=== PATIENT | female | born 1960 | race Caucasian/White ===

== ENCOUNTER 2018-11-28 12:23 | Observation (INO) | payer MEDICARE ==
[2018-11-28 13:49] LABS: Hemoglobin 14.9 gm/dl (12.0-16.0); Mean Cell Volume 94.9 fl (78-100); Mean Corpuscular Hemoglobin 32.9 pg (26-32); Mean Corpuscular Hgb Concent. 34.7 g/dl (32-36); Mean Platelet Volume 10.5 fl (6-9.5); Platelet Count 114 K/mm3 (150-450); Red Blood Count 4.53 M/mm3 (4.1-5.4); Red Cell Distribution Width 12.1 % (11.5-14.0)
[2018-11-28] MEDS ORDERED: ULTRAM 50 MG PO PRN (13:55)
[2018-11-28] MEDS ORDERED: NORCO 5/325 MG PO PRN (13:55)
[2018-11-28 13:57] LABS: ALBUMIN 4.7 g/dL (3.5-5.0); ALKALINE PHOSPHATASE 75 U/L (38-126); ANION GAP 19.5 MEQ/L (5-15); BLOOD UREA NITROGEN 17 mg/dL (7-17); CHLORIDE 88 mmol/L (98-107); Calcium 9.5 mg/dL (8.4-10.2); Carbon Dioxide 25 mmol/L (22-30); Creatinine 1 0.57 mg/dL (0.52-1.04); Glucose 79 mg/dL (74-106); Potassium 4.7 mmol/L (3.5-5.1); SGOT/AST 63 U/L (14-36); SGPT/ALT 27 U/L (0-35); SODIUM 128 mmol/L (137-145)
--- NOTE | 2018-11-28 14:05 | XRAY ---
Indication: Chest pain and cough. Comparison: October 10, 2012. PA/lateral chest remains hyperinflated and clear again with incidental calcified granulomas. Heart and mediastinal structures within normal limits. Bony thorax intact. Impression: Stable nonacute hyperinflated chest with evidence for old granulomatous disease.
[2018-11-28] MEDS: Calcium 500MG W/Vit D Tablet PO SCH (15:05)
[2018-11-28] MEDS: Valium 5 MG PO SCH (15:05)
[2018-11-28] MEDS ORDERED: TYLENOL 325 MG PO PRN (16:28)
[2018-11-28] MEDS: solu-MEDROL 40 MG IV SCH ×2 (16:29→21:13)
[2018-11-28] MEDS: ROCEPHIN 1 Gm-D5w 50 ml Bag** 1 G/50 ML IVPB IV SCH (16:29)
[2018-11-28] MEDS: Sodium Chloride 0.9% 1000 ML 1,000 ML IV SCH (16:29)
[2018-11-28] MEDS: DUONEB 0.5-3 MG/3 ml Neb IH SCH (19:38)
[2018-11-29] MEDS: DUONEB 0.5-3 MG/3 ml Neb IH SCH ×4 (00:53→17:22)
[2018-11-29] MEDS: ROCEPHIN 1 Gm-D5w 50 ml Bag** 1 G/50 ML IVPB IV SCH (08:55)
[2018-11-29] MEDS: Sodium Chloride 0.9% 1000 ML 1,000 ML IV SCH (08:57)
[2018-11-29] MEDS: Calcium 500MG W/Vit D Tablet PO SCH (08:58)
[2018-11-29] MEDS: Valium 5 MG PO SCH (08:58)
[2018-11-29] MEDS: solu-MEDROL 40 MG IV SCH ×2 (08:58→22:38)
[2018-11-29 09:45] LABS: Hematocrit 39.3 % (35-47); Hemoglobin 13.8 gm/dl (12.0-16.0); Mean Cell Volume 94.5 fl (78-100); Mean Corpuscular Hemoglobin 33.2 pg (26-32); Mean Corpuscular Hgb Concent. 35.1 g/dl (32-36); Platelet Count 101 K/mm3 (150-450); Red Blood Count 4.16 M/mm3 (4.1-5.4); White Blood Count 5.2 K/mm3 (4.0-10.5)
[2018-11-29] MEDS ORDERED: FLUZONE QUAD (36mo-64yo) 2018-2019 SYRINGE IM ONE (10:00)
[2018-11-29] MEDS ORDERED: NON-FORMULARY ITEM (Diazepam [Valium] 10 MG) PO SCH (10:00)
[2018-11-29] MEDS ORDERED: NON-FORMULARY ITEM (Calcium Carbonate/Vitamin D3 [Calcium 1,000 + D3 Caplet] 1 EACH) PO SCH (10:00)
[2018-11-29 10:14] LABS: ANION GAP 15.6 MEQ/L (5-15); BLOOD UREA NITROGEN 13 mg/dL (7-17); CHLORIDE 93 mmol/L (98-107); Calcium 8.7 mg/dL (8.4-10.2); Carbon Dioxide 27 mmol/L (22-30); Creatinine 1 0.53 mg/dL (0.52-1.04); Glucose 149 mg/dL (74-106); Potassium 3.8 mmol/L (3.5-5.1); SODIUM 132 mmol/L (137-145)
--- NOTE | 2018-11-29 15:27 | PCM.NOTE ---
Date and Time: 11/29/18 1524 Subjective Assessment: feeling little better - Review of Systems Constitutional: No Fever, No Chills Eyes: No Symptoms Ears, Nose, & Throat: No Symptoms Respiratory: Cough, Orthopnea, Short Of Breath, Wheezing Cardiac: No Chest Pain, No Edema, No Syncope Abdominal/Gastrointestinal: No Abdominal Pain, No Nausea, No Vomiting, No Diarrhea Genitourinary Symptoms: No Dysuria Musculoskeletal: No Back Pain, No Neck Pain Skin: No Rash Neurological: No Dizziness, No Focal Weakness, No Sensory Changes Psychological: No Symptoms Endocrine: No Symptoms Hematologic/Lymphatic: No Symptoms Immunological/Allergic: No Symptoms Objective Exam General Appearance: no apparent distress, alert Neurologic Exam: alert, oriented x 3, cooperative, normal mood/affect, nml cerebellar function, sensation nml, No motor deficits Skin Exam: normal color, warm, dry Eye Exam: PERRL, EOMI, eyes nml inspection Ears, Nose, Throat Exam: normal ENT inspection, pharynx normal, moist mucous membranes Neck Exam: normal inspection, non-tender, supple, full range of motion Respiratory Exam: normal breath sounds, lungs clear, No respiratory distress Cardiovascular Exam: regular rate/rhythm, normal heart sounds Gastrointestinal/Abdomen Exam: soft, No tenderness, No mass Extremity Exam: normal inspection, normal range of motion Back Exam: normal inspection, normal range of motion, No CVA tenderness, No vertebral tenderness Pelvic Exam: deferred Rectal Exam: deferred OBJECTIVE DATA Vital Signs: Vital Signs - 24 hr Temp Pulse Resp BP Pulse Ox 11/29/18 12:17 97.8 F 77 20 87/54 97 11/29/18 12:11 76 20 11/29/18 12:00 20 11/29/18 08:22 80 20 98 11/29/18 08:00 20 11/29/18 07:41 97.8 F 64 20 98/60 98 11/29/18 04:00 97.9 F 83 18 101/63 96 11/29/18 00:54 84 16 97 11/29/18 00:30 98.7 F 87 16 98/61 97 11/28/18 20:00 99.8 F 103 H 18 110/57 91 L 11/28/18 19:39 101 H 18 89 L 11/28/18 16:00 101.0 F 106 H 18 166/87 90 L Oxygen-Last 24 hours O2 Percentage 2 Liters = 28% O2 Percentage 2 Liters = 28% O2 Percentage 2 Liters = 28% Pain Assessment - Last Documented Pain Intensity 5 Pain Scale Used 0-10 Pain Scale Intake and Output: Intake & Output 11/27/18 11/28/18 11/29/18 11/30/18 11:59 11:59 11:59 11:59 Intake Total 1359 360 Output Total 500 1100 Balance 859 -740 Weight 48.3 kg Lab Results: Lab Results-Last 24 Hours 11/29/18 11/29/18 Range/Units 09:41 09:41 WBC 5.2 (4.0-10.5) K/mm3 RBC 4.16 (4.1-5.4) M/mm3 Hgb 13.8 (12.0-16.0) gm/dl Hct 39.3 (35-47) % MCV 94.5 (78-100) fl MCH 33.2 H (26-32) pg MCHC 35.1 (32-36) g/dl RDW 12.0 (11.5-14.0) % Plt Count 101 L (150-450) K/mm3 MPV 11.0 H (6-9.5) fl Sodium 132 L (137-145) mmol/L Potassium 3.8 (3.5-5.1) mmol/L Chloride 93 L (98-107) mmol/L Carbon Dioxide 27 (22-30) mmol/L Anion Gap 15.6 H (5-15) MEQ/L BUN 13 (7-17) mg/dL Creatinine 0.53 (0.52-1.04) mg/dL Estimated GFR > 60.0 ML/MIN Glucose 149 H (74-106) mg/dL Calcium 8.7 (8.4-10.2) mg/dL Radiology Exams: Radiology Procedures Category Date Time Status CHEST 2 VIEWS (PA AND LAT) Routine Exams 11/28/18 14:00 Completed Assessment/Plan (1) Bronchitis with chronic airway obstruction Current Visit: Yes Status: Acute Assessment & Plan: Last Vital Signs Temp 97.8 F 11/29/18 12:17 Pulse 77 11/29/18 12:17 Resp 20 11/29/18 12:17 BP 87/54 11/29/18 12:17 Pulse Ox 97 11/29/18 12:17 Allergies codeine [Codeine] Allergy (Verified 10/23/12 06:57) acetaminophen [From Tylenol] Adverse Reaction (Mild, Verified 10/19/12 13:30) upset stomach Active Medications Acetaminophen (Tylenol 325 Mg) 650 mg PO Q6H PRN PRN PRN Reason: PAIN AND/OR FEVER Stop: 12/28/18 16:27 Last Admin: 11/28/18 16:36 Dose: 650 mg Hydrocodone Bitart/Acetaminophen ([place] 5/325 Mg) 1 tab PO Q4H PRN PRN PRN Reason: PAIN Stop: 12/03/18 13:54 Albuterol/Ipratropium (Duoneb 0.5-3 Mg/3 Ml Neb) 3 ml IH Q6HRT MARGE Stop: 12/28/18 18:59 Last Admin: 11/29/18 12:10 Dose: 3 ml Calcium Carbonate (Calcium 500mg W/Vit D Tablet) 2 tab PO DAILY MARGE Stop: 12/28/18 13:59 Last Admin: 11/29/18 08:58 Dose: 2 tab Diazepam (Valium 5 Mg) 10 mg PO DAILY MARGE Stop: 12/28/18 13:59 Last Admin: 11/29/18 08:58 Dose: 10 mg Ceftriaxone Sodium/Dextrose (Rocephin 1 Gm-D5w 50 Ml Bag) 1 g in 50 mls @ 100 mls/hr IV Q24H10 MARGE Stop: 12/28/18 13:59 Last Admin: 11/29/18 08:55 Dose: 100 mls/hr Sodium Chloride (Sodium Chloride 0.9% 1000 Ml) 1,000 mls @ 100 mls/hr IV .Q10H MARGE Stop: 12/28/18 13:29 Last Admin: 11/29/18 08:57 Dose: 100 mls/hr Methylprednisolone Sodium Succinate (Solu-Medrol 40 Mg) 40 mg IV BID MARGE Stop: 12/28/18 13:31 Last Admin: 11/29/18 08:58 Dose: 40 mg Tramadol HCl (Ultram 50 Mg) 50 mg PO Q6H/PRN PRN PRN Reason: PAIN Stop: 12/28/18 13:54 Intake & Output 11/29/18 11/30/18 11:59 11:59 Intake Total 1359 360 Output Total 500 1100 Balance 859 -740 Weight 48.3 kg Orders 11/28/18 16:28 Acetaminophen 325 mg [Tylenol 325 mg] 650 mg PO Q6H PRN PRN 11/28/18 19:00 Albuterol/Ipratropium 3ml Neb* [DUONEB 0.5-3 MG/3 ml Neb] 3 ml IH Q6HRT 11/28/18 19:50 Oxygen Nasal Cannula 2 lpm 11/28/18 19:52 Pulse Oximetry .spot check 11/28/18 19:53 Respiratory Therapy Assessment DAILY 11/29/18 08:25 Peak Expiratory Flow Rate ONCE Lab Tests 11/29/18 11/29/18 09:41 09:41 WBC 5.2 RBC 4.16 Hgb 13.8 Hct 39.3 MCV 94.5 MCH 33.2 H MCHC 35.1 RDW 12.0 Plt Count 101 L MPV 11.0 H Sodium 132 L Potassium 3.8 Chloride 93 L Carbon Dioxide 27 Anion Gap 15.6 H BUN 13 Creatinine 0.53 Estimated GFR > 60.0 Glucose 149 H Calcium 8.7 Code(s): J44.9 - CHRONIC OBSTRUCTIVE PULMONARY DISEASE, UNSPECIFIED
[2018-11-30] MEDS: DUONEB 0.5-3 MG/3 ml Neb IH SCH ×3 (01:15→12:36)
[2018-11-30] MEDS: Sodium Chloride 0.9% 1000 ML 1,000 ML IV SCH (06:38)
[2018-11-30] MEDS: ROCEPHIN 1 Gm-D5w 50 ml Bag** 1 G/50 ML IVPB IV SCH (10:09)
[2018-11-30] MEDS: solu-MEDROL 40 MG IV SCH (10:11)
[2018-11-30] MEDS: Calcium 500MG W/Vit D Tablet PO SCH (10:15)
[2018-11-30] MEDS: Valium 5 MG PO SCH (10:15)
[2018-11-30 12:19] VITALS: BP 90/52
--- NOTE | 2018-11-30 12:31 | PCM.DS ---
Discharge Summary Date of Admission: 11/28/18 13:06 Admitting Physician: MIGUEL BOCANEGRA Primary Care Provider: MIGUEL BOCANEGRA Allergies Allergies codeine [Codeine] Allergy (Verified 10/23/12 06:57) acetaminophen [From Tylenol] Adverse Reaction (Mild, Verified 10/19/12 13:30) upset stomach Hospital Summary - Hospital Course Hospital Course: Chief Complaint Diagnosis ACUTE BRONCHITIS, COPD EXACERBATION Allergies Allergy/AdvReac Type Severity Reaction Status Date / Time codeine [Codeine] Allergy Verified 10/23/12 06:57 acetaminophen [From Tylenol] AdvReac Mild upset Verified 10/19/12 13:30 stomach Vital Signs (Last 24 hours) Temp Pulse Resp BP BP Pulse Ox 11/30/18 12:00 97.8 F 84 18 90/52 98 11/30/18 09:24 78 17 98 11/30/18 08:00 98.4 F 79 16 83/51 99 11/30/18 04:20 97.6 F 76 16 108/59 98 11/30/18 01:15 86 16 96 11/30/18 00:00 97.9 F 89 16 95/54 98 11/29/18 20:15 97.9 F 86 20 88/54 96 11/29/18 17:23 81 18 97 11/29/18 16:23 97.9 F 82 18 93/51 99 11/29/18 16:00 18 Home Medications Medication Instructions Recorded Confirmed Last Taken Type Calcium Carbonate/Vitamin D3 1 each PO DAILY 11/28/18 11/28/18 11/25/18 History [Calcium 1,000 + D3 Caplet] Hydrocodone/APAP 5/325 [[place] 1 tab PO Q4H PRN PRN 11/28/18 11/28/18 History 5/325 mg] Current Medications Generic Name Dose Route Start Last Admin Trade Name Freq PRN Reason Stop Dose Admin Acetaminophen 650 mg 11/28/18 16:28 11/28/18 16:36 Tylenol 325 Mg PO 12/28/18 16:27 650 mg Q6H PRN PRN Administration PAIN AND/OR FEVER Hydrocodone Bitart/Acetaminophen 1 tab 11/28/18 13:55 [place] 5/325 Mg PO 12/03/18 13:54 Q4H PRN PRN PAIN Albuterol/Ipratropium 3 ml 11/28/18 19:00 11/30/18 06:43 Duoneb 0.5-3 Mg/3 Ml Neb IH 12/28/18 18:59 3 ml Q6HRT MARGE Administration Calcium Carbonate 2 tab 11/28/18 14:00 11/30/18 10:15 Calcium 500mg W/Vit D Tablet PO 12/28/18 13:59 2 tab DAILY MARGE Administration Diazepam 10 mg 11/28/18 14:00 11/30/18 10:15 Valium 5 Mg PO 12/28/18 13:59 10 mg DAILY MARGE Administration Ceftriaxone Sodium/Dextrose 1 g in 50 mls @ 100 mls/hr 11/28/18 14:00 10:09 Rocephin 1 Gm-D5w 50 Ml Bag IV 12/28/18 13:59 100 mls/hr Q24H10 MARGE Administration Sodium Chloride 1,000 mls @ 100 mls/hr 11/28/18 13:30 11/30/18 06:38 Sodium Chloride 0.9% 1000 Ml IV 12/28/18 13:29 100 mls/hr .Q10H MARGE Administration Methylprednisolone Sodium Succinate 40 mg 11/28/18 13:32 11/30/18 10:11 Solu-Medrol 40 Mg IV 12/28/18 13:31 40 mg BID MARGE Administration Tramadol HCl 50 mg 11/28/18 13:55 Ultram 50 Mg PO 12/28/18 13:54 Q6H/PRN PRN PAIN Discontinued Medications Generic Name Dose Route Start Last Admin Trade Name Freq PRN Reason Stop Dose Admin Influenza Virus Vaccine 60 mcg 11/29/18 10:00 11/29/18 08:58 Fluzone Quad (36mo-64yo) [id number] Syringe IM 11/29/18 10:01 60 mcg .ONCE ONE Administration Intake & Output (Last 24 hours) 11/28/18 11/29/18 11/30/18 12/01/18 11:59 11:59 11:59 11:59 Intake Total 1359 2724 Output Total 500 3950 Balance 859 -1226 Weight 48.3 kg Orders (Last 24 hours) Category Date Time Status Ambulate Patient ROUTINE Care 11/30/18 08:59 Active - Vitals & Intake/Output Vital Signs: Vital Signs Temperature 97.8 F 11/30/18 12:00 Pulse Rate 84 11/30/18 12:00 Respiratory Rate 18 11/30/18 12:00 Blood Pressure 90/52 11/30/18 12:00 O2 Sat by Pulse Oximetry 98 11/30/18 12:00 Oxygen-Last Documented O2 Percentage 2 Liters = 28% Intake & Output: Intake & Output 11/28/18 11/29/18 11/30/18 12/01/18 11:59 11:59 11:59 11:59 Intake Total 1359 2724 Output Total 500 3950 Balance 859 -1226 Weight 48.3 kg - Lab Result Diagrams: 11/29/18 09:41 11/29/18 09:41 - Radiology Exams Ordered Rad Exams-Entire Visit: Radiology Procedures Category Date Time Status CHEST 2 VIEWS (PA AND LAT) Routine Exams 11/28/18 14:00 Completed - Procedures and Test Procedures and Tests throughout Hospitalization: Therapy Orders & Screens 11/28/18 13:26 Respiratory Therapy Consult ROUTINE Comment: Reason For Exam: bronchitis, copd 11/28/18 13:41 Smoking Cessation Education Comment: Diagnosis: ACUTE BRONCHITIS, COPD EXACERBATION Smoking Status: Current every day smoker How long have you smoked: 40 YEARS Have you smoked in the past 12 months: Yes Approximately how many cigarettes per day: 18 Do you dip or chew tobacco: No 11/28/18 19:50 Oxygen Nasal Cannula 2 lpm Comment: Diagnosis: ACUTE BRONCHITIS, COPD EXACERBATION 11/28/18 19:53 Respiratory Therapy Assessment DAILY Comment: Diagnosis: ACUTE BRONCHITIS, COPD EXACERBATION 11/29/18 08:25 Peak Expiratory Flow Rate ONCE Comment: Reason For Exam: Diagnosis: ACUTE BRONCHITIS, COPD EXACERBATION Discharge Exam General Appearance: no apparent distress, alert Neurologic Exam: alert, oriented x 3, cooperative, normal mood/affect, nml cerebellar function, sensation nml, No motor deficits Skin Exam: normal color, warm, dry Eye Exam: PERRL, EOMI, eyes nml inspection Ears, Nose, Throat Exam: normal ENT inspection, pharynx normal, moist mucous membranes Neck Exam: normal inspection, non-tender, supple, full range of motion Respiratory Exam: normal breath sounds, lungs clear, No respiratory distress Cardiovascular Exam: regular rate/rhythm, normal heart sounds Gastrointestinal/Abdomen Exam: soft, No tenderness, No mass Extremity Exam: normal inspection, normal range of motion Back Exam: normal inspection, normal range of motion, No CVA tenderness, No vertebral tenderness Pelvic Exam: deferred Rectal Exam: deferred Final Diagnosis/Problem List - Final Discharge Diagnosis/Problem (1) Bronchitis with chronic airway obstruction Current Visit: Yes Status: Acute Assessment & Plan: improved, Chief Complaint Diagnosis ACUTE BRONCHITIS, COPD EXACERBATION Allergies Allergy/AdvReac Type Severity Reaction Status Date / Time codeine [Codeine] Allergy Verified 10/23/12 06:57 acetaminophen [From Tylenol] AdvReac Mild upset Verified 10/19/12 13:30 stomach Vital Signs (Last 24 hours) Temp Pulse Resp BP BP Pulse Ox 11/30/18 12:00 97.8 F 84 18 90/52 98 11/30/18 09:24 78 17 98 11/30/18 08:00 98.4 F 79 16 83/51 99 11/30/18 04:20 97.6 F 76 16 108/59 98 11/30/18 01:15 86 16 96 11/30/18 00:00 97.9 F 89 16 95/54 98 11/29/18 20:15 97.9 F 86 20 88/54 96 11/29/18 17:23 81 18 97 11/29/18 16:23 97.9 F 82 18 93/51 99 11/29/18 16:00 18 Home Medications Medication Instructions Recorded Confirmed Last Taken Type Calcium Carbonate/Vitamin D3 1 each PO DAILY 11/28/18 11/28/18 11/25/18 History [Calcium 1,000 + D3 Caplet] Hydrocodone/APAP 5/325 [[place] 1 tab PO Q4H PRN PRN 11/28/18 11/28/18 History 5/325 mg] Current Medications Generic Name Dose Route Start Last Admin Trade Name Freq PRN Reason Stop Dose Admin Acetaminophen 650 mg 11/28/18 16:28 11/28/18 16:36 Tylenol 325 Mg PO 12/28/18 16:27 650 mg Q6H PRN PRN Administration PAIN AND/OR FEVER Hydrocodone Bitart/Acetaminophen 1 tab 11/28/18 13:55 [place] 5/325 Mg PO 12/03/18 13:54 Q4H PRN PRN PAIN Albuterol/Ipratropium 3 ml 11/28/18 19:00 11/30/18 06:43 Duoneb 0.5-3 Mg/3 Ml Neb IH 12/28/18 18:59 3 ml Q6HRT MARGE Administration Calcium Carbonate 2 tab 11/28/18 14:00 11/30/18 10:15 Calcium 500mg W/Vit D Tablet PO 12/28/18 13:59 2 tab DAILY MARGE Administration Diazepam 10 mg 11/28/18 14:00 11/30/18 10:15 Valium 5 Mg PO 12/28/18 13:59 10 mg DAILY MARGE Administration Ceftriaxone Sodium/Dextrose 1 g in 50 mls @ 100 mls/hr 11/28/18 14:00 10:09 Rocephin 1 Gm-D5w 50 Ml Bag IV 12/28/18 13:59 100 mls/hr Q24H10 MARGE Administration Sodium Chloride 1,000 mls @ 100 mls/hr 11/28/18 13:30 11/30/18 06:38 Sodium Chloride 0.9% 1000 Ml IV 12/28/18 13:29 100 mls/hr .Q10H MARGE Administration Methylprednisolone Sodium Succinate 40 mg 11/28/18 13:32 11/30/18 10:11 Solu-Medrol 40 Mg IV 12/28/18 13:31 40 mg BID MARGE Administration Tramadol HCl 50 mg 11/28/18 13:55 Ultram 50 Mg PO 12/28/18 13:54 Q6H/PRN PRN PAIN Discontinued Medications Generic Name Dose Route Start Last Admin Trade Name Freq PRN Reason Stop Dose Admin Influenza Virus Vaccine 60 mcg 11/29/18 10:00 11/29/18 08:58 Fluzone Quad (36mo-64yo) [id number] Syringe IM 11/29/18 10:01 60 mcg .ONCE ONE Administration Intake & Output (Last 24 hours) 11/28/18 11/29/18 11/30/18 12/01/18 11:59 11:59 11:59 11:59 Intake Total 1359 2724 Output Total 500 3950 Balance 859 -1226 Weight 48.3 kg Orders (Last 24 hours) Category Date Time Status Ambulate Patient ROUTINE Care 11/30/18 08:59 Active - Discharge Discharge Date: 11/30/18 Disposition: Home, Self-Care Condition: Stable Prescriptions: New Cephalexin Mh 500 mg [Keflex 500 mg] 500 mg PO QID #30 capsule Methylprednisolone Packet [Medrol Dosepack] 4 mg PO UD #30 packet Continue Diazepam [Valium] 10 mg PO DAILY Calcium Carbonate/Vitamin D3 [Calcium 1,000 + D3 Caplet] 1 each PO DAILY Tramadol HCl 50 mg [Ultram 50 mg] 50 mg PO Q6H PRN #30 PRN Reason: Pain Discontinued Hydrocodone/APAP 5/325 [[place] 5/325 mg] 1 tab PO Q4H PRN PRN PRN Reason: Pain Follow up with: MIGUEL BOCANEGRA MD [Primary Care Provider] - 12/08/18 2:30 pm (at [facility])
[2018-11-30 13:04] VITALS: PULSE 86
[2018-11-30 15:00] VITALS: O2SAT 97
== END 2018-11-30 15:50 | disposition home or self-care (01) ==
LOC: MED SURG 13:06
PROVIDERS: ADMIT General Practice; ATTEND General Practice
DX: J44.1 Chronic obstructive pulmonary disease with (acute) exacerbation (principal); J20.9 Acute bronchitis, unspecified
CPT/HCPCS: 36415; 71046; 80048; 80053; 85027; 94150; 94640; 94760; G0008; G0378; 90686; J0696; J2920; A9270-GY

== ENCOUNTER 2019-11-27 06:04 | Day surgery (SDC) | payer MEDICARE ==
[~2019-11-27 06:04] MED LIST: Lactated Ringers 1,000 ML IV SCH
[2019-11-27] MEDS ORDERED: Lactated Ringers 1,000 ML IV ONE (06:33)
[2019-11-27] MEDS ORDERED: DIPRIVAN 200 MG/20 ML IV ONE (08:08)
[2019-11-27 08:35] VITALS: PULSE 85; O2SAT 98
--- NOTE | 2019-11-27 08:42 | OP ---
SURGERY DATE/TIME: 11/27/2019 0757 PREOPERATIVE DIAGNOSIS: Epigastric pain. POSTOPERATIVE DIAGNOSIS: Moderate duodenitis, mild gastritis. PROCEDURE: Esophagogastroduodenoscopy with cold forceps biopsy. SURGEON: Dr. Madrid. ANESTHESIA: Medications were given by the anesthesia department. BRIEF HISTORY: The patient is a 59 year old white female presenting now for endoscopic evaluation. The patient reported she has a history of Crohn's colitis and has not been taking medication for the last several years. She used to take Remicade when Dr. Hayes was in the area but he has moved away many years ago. The patient reports she takes no [id number] medication other than antacids which do help temporarily. The patient was felt the need to have endoscopic evaluation. She was apprised of the risks of the procedure including the risk of perforation, phlebitis, untoward reaction to medication, bleeding and missed lesions. The patient verbalized her understanding and desired to have the procedure performed. DESCRIPTION OF PROCEDURE: The patient was given the medications by the anesthesia department. She had continuous pulse oximetry, ECG monitoring, intermittent blood pressure monitoring and tidal CO2 monitoring during the examination. She was placed in the left lateral decubitus position. A bite block was placed and the flexible Olympus gastroscope was used to intubate the oropharynx. A view of the larynx was obtained and was normal. The scope was easily introduced in the esophagus which appeared to be normal throughout its length. The stomach was entered where normal gastric rugal folds were seen and these distended nicely with insufflation of air. The scope was passed along the greater curvature of the stomach to the antrum. The pylorus was encountered and intubated. The duodenum was inspected and found to have some erythema but no erosions or ulcerations. The scope is then withdrawn towards the stomach. A retroflex view was obtained of the lesser curvature, fundus and cardia regions of the stomach and these appeared to be essentially normal. The scope was then redirected towards the gastric antrum where biopsies were obtained to rule out the presence of Helicobacter pylori-type organisms. The scope was then removed from the patient who tolerated the procedure well and was sent back to outpatient recovery in good condition.
[2019-11-27 09:00] VITALS: BP 134/82
== END 2019-11-27 09:00 | disposition home or self-care (01) ==
LOC: SDC 06:04
PROVIDERS: ATTEND Family Medicine
DX: K29.80 Duodenitis without bleeding (principal); K29.70 Gastritis, unspecified, without bleeding; K21.9 Gastro-esophageal reflux disease without esophagitis; Z87.19 Personal history of other diseases of the digestive system
CPT/HCPCS: 88305; J2704

== ENCOUNTER 2021-08-07 11:16 | Emergency (ER) | payer MEDICARE ==
[2021-08-07] MEDS ORDERED: MORPHINE SULFATE 4 MG INJ IV ONE (11:52)
[2021-08-07] MEDS ORDERED: Sodium Chloride 0.9% 1000 ML 1,000 ML IV STA (11:52)
[2021-08-07] MEDS ORDERED: PROTONIX 40 MG IV IV ONE ×2 (11:52→11:56)
[2021-08-07] MEDS ORDERED: Sodium Chloride 0.9% 1000 ML 1,000 ML ONE (11:57)
[2021-08-07] MEDS ORDERED: MORPHINE SULFATE 4 MG INJ ONE (11:57)
--- NOTE | 2021-08-07 12:11 | ERPHSYRPT ---
- History of Present Illness Time Seen by Provider: 08/07/21 11:33 Historian: patient Exam Limitations: no limitations Patient Subjective Stated Complaint: Pt began having pain in her left mid back that radiates to the bottom of her back, pain began 4 days ago Triage Nursing Assessment: Pt brought to the ER by her , hypertensive, rates pain as 8/, pt is currently being treated for shingles by Brittany Owens just this past week, pt states that she was in end stage kidney failure approx 20 years ago and now her kidneys have no problems at all, denies pain to the back with palpatation, constant stabbing pain, denies pain with urination, denies injury Physician History: 60 years old female presented in the ER with 4 days history of gradually increasing left flank pain with radiation to the low back but denies any midline back pain and some radiation to anterior abdomen, aggravated with movements palpation and no significant relieving factors. Denies any associated urinary symptoms. No fever or chills reported. Does have nausea but no vomiting. Timing/Duration: day(s) (4), constant, gradual onset, worse Activities at Onset: rest Quality: sharpness Abdominal Pain Onset Location: flank Pain Radiation: back Severity of Pain-Max: moderate Severity of Pain-Current: moderate Modifying Factors: Improves With: rest. Worsens With: movement, palpation Associated Symptoms: nausea Previous symptoms: no prior history Allergies/Adverse Reactions: codeine [Codeine] Allergy (Intermediate, Verified 08/07/21 11:33) Hives acetaminophen [From Tylenol] Adverse Reaction (Mild, Verified 08/07/21 11:33) upset stomach Hx Tetanus, Diphtheria Vaccination/Date Given: No Hx Influenza Vaccination/Date Given: No Hx Pneumococcal Vaccination/Date Given: No Travel Risk - International Travel Have you traveled outside of the country in past 3 weeks: No - Coronavirus Screening Are you exhibiting any of the following symptoms?: No Close contact with a COVID-19 positive Pt in past 14-21 Days: No - Vaccine Status Have you recieved a Covid-19 vaccination: Yes Tube Washer: Moderna - Vaccination Dates Date of 2cond Vaccination (if applicable): 05/2021 - Review of Systems Constitutional: No Symptoms Eyes: No Symptoms Ears, Nose, & Throat: No Symptoms Respiratory: No Symptoms Cardiac: No Symptoms Abdominal/Gastrointestinal: Abdominal Pain, Nausea Genitourinary Symptoms: No Symptoms Musculoskeletal: Back Pain Skin: No Symptoms Neurological: No Symptoms Psychological: No Symptoms Endocrine: No Symptoms Hematologic/Lymphatic: No Symptoms Immunological/Allergic: No Symptoms - Past Medical History Pertinent Past Medical History: Yes Neurological History: TIA ENT History: No Pertinent History Cardiac History: Arrhythmia, High Cholesterol, Other Respiratory History: Bronchitis, COPD, Pneumonia, Sleep Apnea Endocrine Medical History: No Pertinent History Musculoskeletal History: Osteoporosis GI Medical History: Crohns Disease, Ulcer History: Dialysis Psycho-Social History: No Pertinent History Female Reproductive Disorders: Endometriosis Other Medical History: SVT,HEART RACES AT TIMES, HEART MURMUR,MITRAL VALVE PROLAPSE,BLOOD CLOT IN CAROTID, KIDNEY FAILURE REQUIRING SHORT TERM DIALYSIS,CHRONES DISEASE, - Past Surgical History Past Surgical History: Yes Neuro Surgical History: No Pertinent History Cardiac: Cardiac Catheterization, Other Respiratory: No Pertinent History Gastrointestinal: No Pertinent History Genitourinary: No Pertinent History Musculoskeletal: Orthopedic Surgery Female Surgical History: Hysterectomy Other Surgical History: Surgery on right hand X 2, LEFT CAROTID SURGERY-90% BLOCKED,PT HAD TIA - Social History Smoking Status: Current every day smoker How long have you smoked: 40 YEARS Exposure to second hand smoke: Yes Drug Use: none Patient Lives Alone: No - Female History Hx Now: No - Nursing Vital Signs Nursing Vital Signs: Initial Vital Signs Temperature 98.2 F 08/07/21 11:22 Pulse Rate 101 H 08/07/21 11:22 Blood Pressure 148/87 08/07/21 11:22 O2 Sat by Pulse Oximetry 100 08/07/21 11:22 Pain Scale Pain Intensity [Left Lower 8 Medial Back] Pain Intensity 5 - Physical Exam General Appearance: no apparent distress, alert Eye Exam: PERRL/EOMI, eyes nml inspection Ears, Nose, Throat Exam: normal ENT inspection, TMs normal Neck Exam: normal inspection, non-tender, supple, full range of motion Respiratory Exam: normal breath sounds, lungs clear Cardiovascular Exam: regular rate/rhythm, normal heart sounds Gastrointestinal/Abdomen Exam: soft, normal bowel sounds, tenderness (Left flank) Back Exam: normal inspection, normal range of motion, CVA tenderness (Left ), No vertebral tenderness Extremity Exam: normal inspection, normal range of motion, pelvis stable Neurologic Exam: alert, oriented x 3, cooperative Skin Exam: normal color SpO2 Interpretation: normal SpO2: 100 O2 Delivery: Room Air Ordered Tests: Active Orders 24 hr Category Date Time Status IV Insertion STAT Care 08/07/21 11:52 Active NPO (ED) STAT Care 08/07/21 11:52 Active ABDOMEN AND PELVIS W/0 CONTRAS [CT] Stat Exams 08/07/21 11:52 Completed CBC W DIFF Stat Lab 08/07/21 12:55 Completed CMP Stat Lab 08/07/21 12:55 Completed LIPASE Stat Lab 08/07/21 12:55 Completed UA W/RFX UR CULTURE Stat Lab 08/07/21 12:55 Completed Medication Summary Discontinued Medications Generic Name Dose Route Start Last Admin Trade Name Freq PRN Reason Stop Dose Admin Sodium Chloride 1,000 mls @ 999 mls/hr 08/07/21 11:52 08/07/21 13:09 Sodium Chloride 0.9% 1000 Ml IV 08/07/21 12:52 Infused .Q1H1M STA Infusion Sodium Chloride Confirm 08/07/21 11:57 Sodium Chloride 0.9% 1000 Ml Administered 08/07/21 11:58 Dose 1,000 mls @ ud .ROUTE .STK-MED ONE Morphine Sulfate 4 mg 08/07/21 11:52 08/07/21 12:04 Morphine Sulfate 4 Mg Inj IV 08/07/21 11:53 4 mg STAT ONE Administration Morphine Sulfate Confirm 08/07/21 11:57 Morphine Sulfate 4 Mg Inj Administered 08/07/21 11:58 Dose 4 mg .ROUTE .STK-MED ONE Pantoprazole Sodium 40 mg 08/07/21 11:52 08/07/21 12:05 Protonix 40 Mg Iv IV 08/07/21 11:53 40 mg STAT ONE Administration Pantoprazole Sodium Confirm 08/07/21 11:56 Protonix 40 Mg Iv Administered 08/07/21 11:57 Dose 40 mg IV .STK-MED ONE Lab/Rad Data: Laboratory Result Diagrams 08/07/21 12:55 08/07/21 12:55 Laboratory Results 08/07/21 08/07/21 08/07/21 Range/Units 12:55 12:55 12:55 WBC 9.5 (4.0-10.5) K/mm3 RBC 4.33 (4.1-5.4) M/mm3 Hgb 14.2 (12.0-16.0) gm/dl Hct 42.6 (35-47) % MCV 98.4 (78-100) fl MCH 32.8 H (26-32) pg MCHC 33.3 (32-36) g/dl RDW 13.2 (11.5-14.0) % Plt Count 230 (150-450) K/mm3 MPV 9.6 (7.5-11.0) fl Gran % 71.0 H (36.0-66.0) % Eos # (Auto) 0.05 (0-0.5) Absolute Lymphs (auto) 2.21 (1.0-4.6) Absolute Monos (auto) 0.47 (0.0-1.3) Lymphocytes % 23.3 L (24.0-44.0) % Monocytes % 5.0 (0.0-12.0) % Eosinophils % 0.5 (0.00-5.0) % Basophils % 0.2 (0.0-0.4) % Absolute Granulocytes 6.73 (1.4-6.9) Basophils # 0.02 (0-0.4) Sodium 137 (137-145) mmol/L Potassium 4.1 (3.5-5.1) mmol/L Chloride 104 (98-107) mmol/L Carbon Dioxide 25 (22-30) mmol/L Anion Gap 12.3 (5-15) MEQ/L BUN 14 (7-17) mg/dL Creatinine 0.64 (0.52-1.04) mg/dL Estimated GFR > 60.0 ML/MIN Glucose 87 (74-106) mg/dL Calcium 9.4 (8.4-10.2) mg/dL Total Bilirubin 0.60 (0.2-1.3) mg/dL AST 24 (14-36) U/L ALT 13 (0-35) U/L Alkaline Phosphatase 66 (38-126) U/L Serum Total Protein 7.5 (6.3-8.2) g/dL Albumin 4.5 (3.5-5.0) g/dL Lipase 141 (23-300) U/L Urine Color STRAW (YELLOW) Urine Appearance CLEAR (CLEAR) Urine pH 7.0 (5-6) Ur Specific Clyde 1.002 (1.005-1.025) Urine Protein NEGATIVE (Negative) Urine Ketones NEGATIVE (NEGATIVE) Urine Blood NEGATIVE (0-5) Markus/ul Urine Nitrite NEGATIVE (NEGATIVE) Urine Bilirubin NEGATIVE (NEGATIVE) Urine Urobilinogen NEGATIVE (0-1) mg/dL Ur Leukocyte Esterase NEGATIVE (NEGATIVE) Urine WBC (Auto) NONE (0-5) /HPF Urine RBC (Auto) NONE (0-2) /HPF U Epithel Cells (Auto) NONE (FEW) /HPF Urine Culture Reflexed NO (NO) Urine Glucose NEGATIVE (NEGATIVE) mg/dL - Progress Progress: improved Progress Note: 08/07/21 13:58 She is given fluids and occasions, on reevaluation feeling much better. No peritoneal signs on repeated eval. Has normal white count, grossly unremarkable chemistries, no UTI. CT abdomen pelvis without contrast showed significant stool load with questionable impaction but patient states she goes every day. I believe she has some element of constipation. Recommended stool softener and enema to take as needed. Discussed signs symptoms of worsening needing return to ER which she seems understanding. Do not think she needs any other work-up and is stable for discharge. Counseled pt/family regarding: lab results, diagnosis, need for follow-up, rad results - Departure Departure Disposition: Home Clinical Impression: Left flank pain Constipation Qualifiers: Constipation type: unspecified constipation type Qualified Code(s): K59.00 - Constipation, unspecified Condition: Stable Critical Care Time: No Referrals: MIGUEL BOCANEGRA MD [Primary Care Provider] - Follow Up with PCP/3 days Instructions: Constipation, Adult (DC), Fecal Impaction Additional Instructions: Take Tylenol as needed. Take daily MiraLAX and stool softeners. Increase fiber in diet. Take Fleet enema as needed. Follow-up with primary care for reevaluation. Return to ER for worsening. Prescriptions: Docusate Sodium 100 mg [Colace 100 MG] 100 mg PO BID #60 cap Polyethylene Glycol 3350 17 gm [Miralax Powder 17GM PACKET] 17 gm PO DAILY #30 packet
--- NOTE | 2021-08-07 12:37 | XRAY ---
Indication: Left flank pain 4 days. Multiple contiguous images obtained through the abdomen and pelvis without contrast. Comparison: None Lung bases are clear. Heart is not enlarged. Noncontrasted stomach and bowel loops appear nonobstructed. Normal appendix. There is mild/moderate diffuse scattered colonic fecal debris throughout with mild rectal impaction. Hysterectomy reported. No free fluid/air. Tiny hepatic/splenic calcified granulomas. Remaining liver, gallbladder, pancreas, spleen, adrenal glands, kidneys, ureters, and bladder are unremarkable for noncontrast exam. Mild scattered aortoiliac calcifications without AAA. Osseous structures intact with minimal degenerative changes throughout the lumbar spine. Impression: 1. Diffuse fecal stasis with mild rectal impaction. 2. Incidental old granulomatous disease. 3. Remaining CT abdomen/pelvis without contrast exam is negative.
[2021-08-07 13:04] LABS: Absolute Neutrophil Ct (ANC) 6.73 (1.4-6.9); BASOPHIL % 0.2 % (0.0-0.4); Basophil (Absolute #) 0.02 (0-0.4); Eosinophil % 0.5 % (0.00-5.0); Eosinophil (Absolute #) 0.05 (0-0.5); Hematocrit 42.6 % (35-47); Hemoglobin 14.2 gm/dl (12.0-16.0); Lymphocyte (Absolute #) 2.21 (1.0-4.6); Lymphocytes % 23.3 % (24.0-44.0); Mean Cell Volume 98.4 fl (78-100); Mean Corpuscular Hemoglobin 32.8 pg (26-32); Mean Corpuscular Hgb Concent. 33.3 g/dl (32-36); Mean Platelet Volume 9.6 fl (7.5-11.0); Monocyte (Absolute #) 0.47 (0.0-1.3); Platelet Count 230 K/mm3 (150-450); Red Blood Count 4.33 M/mm3 (4.1-5.4); Red Cell Distribution Width 13.2 % (11.5-14.0); White Blood Count 9.5 K/mm3 (4.0-10.5)
[2021-08-07 13:19] LABS: ALBUMIN 4.5 g/dL (3.5-5.0); ALKALINE PHOSPHATASE 66 U/L (38-126); ANION GAP 12.3 MEQ/L (5-15); BLOOD UREA NITROGEN 14 mg/dL (7-17); CHLORIDE 104 mmol/L (98-107); Calcium 9.4 mg/dL (8.4-10.2); Carbon Dioxide 25 mmol/L (22-30); Creatinine 1 0.64 mg/dL (0.52-1.04); EST GLOMERULAR FILTRATION RATE > 60.0 ML/MIN; Glucose 87 mg/dL (74-106); LIPASE 141 U/L (23-300); Potassium 4.1 mmol/L (3.5-5.1); SGOT/AST 24 U/L (14-36); SGPT/ALT 13 U/L (0-35); SODIUM 137 mmol/L (137-145); Total Protein 7.5 g/dL (6.3-8.2)
[2021-08-07 13:35] VITALS: PULSE 80
[2021-08-07 13:40] LABS: Appearance CLEAR (CLEAR); Bilirubin NEGATIVE (NEGATIVE); Blood NEGATIVE Ery/ul (0-5); Glucose NEGATIVE (NEGATIVE); Ketones NEGATIVE (NEGATIVE); Leukocyte Esterase NEGATIVE (NEGATIVE); Nitrite NEGATIVE (NEGATIVE); Protein,Urine Dip NEGATIVE (Negative); Specific Gravity 1.002 (1.005-1.025); Urobilinogen NEGATIVE mg/dL (0-1)
[2021-08-07 14:08] VITALS: BP 109/71; O2SAT 98
== END 2021-08-07 14:12 | disposition home or self-care (01) ==
LOC: ED 11:16
DX: R10.9 Unspecified abdominal pain (principal); K59.00 Constipation, unspecified
CPT/HCPCS: 36000; 36415; 74176; 80053; 81001; 83690; 85025; 96360; 96374; 96375; 99284; J2270

== ENCOUNTER 2021-10-26 17:50 | Emergency (ER) | payer MEDICARE ==
--- NOTE | 2021-10-26 18:36 | ERPHSYRPT ---
- History of Present Illness Historian: patient Exam Limitations: no limitations Patient Subjective Stated Complaint: Pt states "I have crohn's and last night my back started to hurt and my belly and I am passing pure bright red blood now. It was loose diarrhea last night but blood now." Triage Nursing Assessment: Pt presented alert and oriented X 3, skin pwd Pt ambulates with an upright steady gait, able to speak in clear full sentences pt in no apparent respiratory distres.s Physician History: 61 yo wf w h/o Crohn's dz presents w 1 day h/o N/V/Diarrhea/heamtochezia. Pt has R/L lower abdominal pain described as an ache. Pain is 5/10, and nothing makes better or worse. She denies chest pain/cough/fever/dysuria/hematuria. Pt receives no treatment for her Crohn's Dz and developed an allergy to Remicade after many years of use. She smokes <1ppd. Timing/Duration: yesterday (Last night) Activities at Onset: rest Quality: aching Abdominal Pain Onset Location: RLQ, LLQ Pain Radiation: no radiation Severity of Pain-Max: moderate Severity of Pain-Current: moderate Modifying Factors: Improves With: nothing Associated Symptoms: denies symptoms, back, diarrhea, nausea, vomiting, No chest pain, No diaphoresis, No fever/chills, No fatigue, No headache, No heartburn, No loss of appetite, No neck pain, No rash, No shortness of breath, No syncope, No weakness Previous symptoms: no prior history Allergies/Adverse Reactions: codeine [Codeine] Allergy (Intermediate, Verified 08/07/21 11:33) Hives acetaminophen [From Tylenol] Adverse Reaction (Mild, Verified 08/07/21 11:33) upset stomach Home Medications: Aspirin [Aspirin EC] 81 mg PO DAILY 10/26/21 [History] Atorvastatin Calcium [Lipitor 40Mg] 40 mg PO DAILY 10/26/21 [History] Docusate Sodium 100 mg PO DAILY 10/26/21 [History] Levofloxacin [Levofloxacin 500 MG Tablet] 500 mg PO DAILY 10/26/21 [History] Methylprednisolone 4 mg [Medrol 4 mg] 4 mg PO DAILY 10/26/21 [History] diazePAM [Diazepam] 10 mg PO HS 10/26/21 [History] Hx Tetanus, Diphtheria Vaccination/Date Given: No Hx Influenza Vaccination/Date Given: No Hx Pneumococcal Vaccination/Date Given: No Immunizations Up to Date: Yes Travel Risk - International Travel Have you traveled outside of the country in past 3 weeks: No - Coronavirus Screening Are you exhibiting any of the following symptoms?: No Close contact with a COVID-19 positive Pt in past 14-21 Days: No - Vaccine Status Have you recieved a Covid-19 vaccination: Yes Shot Bagger: Moderna - Vaccination Dates Date of 2cond Vaccination (if applicable): 01/2021 - Review of Systems Constitutional: No Symptoms Eyes: No Symptoms Ears, Nose, & Throat: No Symptoms Respiratory: No Symptoms Cardiac: No Symptoms Abdominal/Gastrointestinal: No Symptoms, Abdominal Pain, Nausea, Vomiting, Diarrhea, Hematochezia, No Hematemesis, No Melena, No Dysphagia Genitourinary Symptoms: No Symptoms Musculoskeletal: No Symptoms Skin: No Symptoms Neurological: No Symptoms Psychological: No Symptoms Endocrine: No Symptoms Hematologic/Lymphatic: No Symptoms Immunological/Allergic: No Symptoms - Past Medical History Pertinent Past Medical History: Yes Neurological History: TIA ENT History: No Pertinent History Cardiac History: Arrhythmia, High Cholesterol, Other Respiratory History: Bronchitis, COPD, Pneumonia, Sleep Apnea Endocrine Medical History: No Pertinent History Musculoskeletal History: Osteoporosis GI Medical History: Crohns Disease, Ulcer History: Dialysis Psycho-Social History: No Pertinent History Female Reproductive Disorders: Endometriosis Other Medical History: SVT,HEART RACES AT TIMES, HEART MURMUR,MITRAL VALVE PROLA PSE,BLOOD CLOT IN CAROTID, KIDNEY FAILURE REQUIRING SHORT TERM DIALYSIS,CHRONES DISEASE, - Past Surgical History Past Surgical History: Yes Neuro Surgical History: No Pertinent History Cardiac: Cardiac Catheterization, Other Respiratory: No Pertinent History Gastrointestinal: No Pertinent History Genitourinary: No Pertinent History Musculoskeletal: Orthopedic Surgery Female Surgical History: Hysterectomy Other Surgical History: Surgery on right hand X 2, LEFT CAROTID SURGERY-90% BLOCKED,PT HAD TIA - Social History Smoking Status: Current every day smoker How long have you smoked: 40 YEARS Exposure to second hand smoke: Yes Drug Use: none Patient Lives Alone: No Significant Family History: no pertinent family hx - Female History Hx Now: No - Nursing Vital Signs Nursing Vital Signs: Initial Vital Signs Temperature 99.5 F 10/26/21 18:12 Pulse Rate 102 H 10/26/21 18:12 Respiratory Rate 20 12/20/21 18:12 Blood Pressure 155/92 10/26/21 18:12 O2 Sat by Pulse Oximetry 100 10/26/21 18:12 Pain Scale Pain Intensity 5 Hypertensive/tachy - Physical Exam General Appearance: no apparent distress Eye Exam: PERRL/EOMI, eyes nml inspection Ears, Nose, Throat Exam: normal ENT inspection, TMs normal, pharynx normal, moist mucous membranes Neck Exam: normal inspection, non-tender, supple, full range of motion, No meningismus, No mass, No Brudzinski, No Kernig's, No carotid bruit Respiratory Exam: normal breath sounds, lungs clear, prolonged expirations Cardiovascular Exam: tachycardia, No murmur Gastrointestinal/Abdomen Exam: soft, tenderness (TTP R/L LQ w guarding but no rebound), other (Hyperactive BS) Back Exam: normal inspection, normal range of motion, No CVA tenderness Extremity Exam: normal inspection, normal range of motion Neurologic Exam: alert, oriented x 3, cooperative, bar back II-XII nml as tested, normal mood/affect, nml cerebellar function, nml station & gait, sensation nml, No motor deficits, No sensory deficit Skin Exam: normal color Lymphatic Exam: No adenopathy SpO2 Interpretation: normal SpO2: 100 O2 Delivery: Room Air - Course Nursing assessment & vital signs reviewed: Yes - CT Exams Abdomen/Pelvis CT Interpretation: Discussed w/radiologist (Distended urinary bladder/Transverse colon colitis) Ordered Tests: Active Orders 24 hr Category Date Time Status ABDOMEN AND PELVIS W CONTRAST [CT] Stat Exams 10/26/21 19:38 Taken AMYLASE Stat Lab 10/26/21 19:05 Completed CBC W DIFF Stat Lab 10/26/21 19:05 Completed CMP Stat Lab 10/26/21 19:05 Completed ESR [Erythrocyte Sedimentation Rate] Stat Lab 10/26/21 19:05 Completed LIPASE Stat Lab 10/26/21 19:05 Completed TROPONIN Q3H Lab 10/26/21 19:05 Completed UA W/RFX UR CULTURE Stat Lab 10/26/21 19:43 Completed Medication Summary Discontinued Medications Generic Name Dose Route Start Last Admin Trade Name Freq PRN Reason Stop Dose Admin Dexamethasone Sodium Phosphate 10 mg 10/26/21 21:54 10/26/21 22:05 Dexamethasone Sod Phosphate 10 Mg/Ml IV 10/26/21 21:55 10 mg STAT ONE Administration Dexamethasone Sodium Phosphate Confirm 10/26/21 22:03 Dexamethasone Sod Phosphate 10 Mg/Ml Administered 10/26/21 22:04 Dose 10 mg .ROUTE .STK-MED ONE Fentanyl Citrate 50 mcg 10/26/21 19:41 10/26/21 20:00 Fentanyl Citrate 100 Mcg/2 Ml* Vial IV 10/26/21 19:42 50 mcg STAT ONE Administration Fentanyl Citrate Confirm 10/26/21 19:57 Fentanyl Citrate 100 Mcg/2 Ml* Vial Administered 10/26/21 19:58 Dose 100 mcg .ROUTE .STK-MED ONE Hydromorphone HCl 0.5 mg 10/26/21 21:52 10/26/21 22:05 Hydromorphone 1 Mg/1ml Inj 1 Mg/Ml Syringe IV 10/26/21 21:53 0.5 mg STAT ONE Administration Hydromorphone HCl Confirm 10/26/21 22:03 Hydromorphone 1 Mg/1ml Inj 1 Mg/Ml Syringe Administered 10/26/21 22:04 Dose 1 mg .ROUTE .STK-MED ONE Sodium Chloride 1,000 mls @ 999 mls/hr 10/26/21 19:42 10/26/21 21:31 Sodium Chloride 0.9% 1000 Ml IV 10/26/21 20:42 Infused .Q1H1M STA Infusion Sodium Chloride Confirm 10/26/21 19:57 Sodium Chloride 0.9% 1000 Ml Administered 10/26/21 19:58 Dose 1,000 mls @ ud .ROUTE .STK-MED ONE Metronidazole 500 mg in 100 mls @ 200 mls/hr 10/26/21 21:54 10/26/21 22:39 Flagyl 500 Mg Ivpb IV 10/26/21 22:23 Infused STAT STA Infusion Metronidazole Confirm 10/26/21 22:03 Flagyl 500 Mg Ivpb Administered 10/26/21 22:04 Dose 500 mg in 100 mls @ ud IV .STK-MED ONE Ondansetron HCl 4 mg 10/26/21 19:42 10/26/21 20:00 Ondansetron Hcl 4 Mg/2 Ml Vial IV 10/26/21 19:43 4 mg STAT ONE Administration Ondansetron HCl Confirm 10/26/21 19:55 Ondansetron Hcl 4 Mg/2 Ml Vial Administered 10/26/21 19:56 Dose 4 mg .ROUTE .K-MED ONE Lab/Rad Data: Laboratory Result Diagrams 10/26/21 19:05 10/26/21 19:05 Laboratory Results 10/26/21 10/26/21 10/26/21 Range/Units 19:43 19:05 19:05 WBC (4.0-10.5) K/mm3 RBC (4.1-5.4) M/mm3 Hgb (12.0-16.0) gm/dl Hct (35-47) % MCV (78-100) fl MCH (26-32) pg MCHC (32-36) g/dl RDW (11.5-14.0) % Plt Count (150-450) K/mm3 MPV (7.5-11.0) fl Gran % (36.0-66.0) % Eos # (Auto) (0-0.5) Absolute Lymphs (auto) (1.0-4.6) Absolute Monos (auto) (0.0-1.3) Lymphocytes % (24.0-44.0) % Monocytes % (0.0-12.0) % Eosinophils % (0.00-5.0) % Basophils % (0.0-0.4) % Absolute Granulocytes (1.4-6.9) Basophils # (0-0.4) ESR 19 (0-20) mm/hr Sodium (137-145) mmol/L Potassium (3.5-5.1) mmol/L Chloride (98-107) mmol/L Carbon Dioxide (22-30) mmol/L Anion Gap (5-15) MEQ/L BUN (7-17) mg/dL Creatinine (0.52-1.04) mg/dL Estimated GFR ML/MIN Glucose (74-106) mg/dL Calcium (8.4-10.2) mg/dL Total Bilirubin (0.2-1.3) mg/dL AST (14-36) U/L ALT (0-35) U/L Alkaline Phosphatase (38-126) U/L Troponin I < 0.012 (0.000-0.034) ng/mL Serum Total Protein (6.3-8.2) g/dL Albumin (3.5-5.0) g/dL Amylase (30-110) U/L Lipase (23-300) U/L Urine Color YELLOW (YELLOW) Urine Appearance CLEAR (CLEAR) Urine pH 6.0 (5-6) Ur Specific Ruby 1.011 (1.005-1.025) Urine Protein NEGATIVE (Negative) Urine Ketones SMALL (NEGATIVE) Urine Blood NEGATIVE (0-5) Markus/ul Urine Nitrite NEGATIVE (NEGATIVE) Urine Bilirubin NEGATIVE (NEGATIVE) Urine Urobilinogen NEGATIVE (0-1) mg/dL Ur Leukocyte Esterase NEGATIVE (NEGATIVE) Urine WBC (Auto) 3-5 (0-5) /HPF Urine RBC (Auto) 0-2 (0-2) /HPF U Epithel Cells (Auto) RARE (FEW) /HPF Urine Bacteria (Auto) RARE (NEGATIVE) /HPF Urine Mucus (Auto) SLIGHT (NEGATIVE) /HPF Urine Culture Reflexed NO (NO) Urine Glucose NEGATIVE (NEGATIVE) mg/dL 10/26/21 10/26/21 Range/Units 19:05 19:05 WBC 12.9 H (4.0-10.5) K/mm3 RBC 4.58 (4.1-5.4) M/mm3 Hgb 14.6 (12.0-16.0) gm/dl Hct 45.0 (35-47) % MCV 98.3 (78-100) fl MCH 31.9 (26-32) pg MCHC 32.4 (32-36) g/dl RDW 12.6 (11.5-14.0) % Plt Count 208 (150-450) K/mm3 MPV 10.9 (7.5-11.0) fl Gran % 93.2 H (36.0-66.0) % Eos # (Auto) 0.01 (0-0.5) Absolute Lymphs (auto) 0.50 L (1.0-4.6) Absolute Monos (auto) 0.35 (0.0-1.3) Lymphocytes % 3.9 L (24.0-44.0) % Monocytes % 2.7 (0.0-12.0) % Eosinophils % 0.1 (0.00-5.0) % Basophils % 0.1 (0.0-0.4) % Absolute Granulocytes 12.05 H (1.4-6.9) Basophils # 0.01 (0-0.4) ESR (0-20) mm/hr Sodium 130 L (137-145) mmol/L Potassium 4.7 (3.5-5.1) mmol/L Chloride 95 L (98-107) mmol/L Carbon Dioxide 27 (22-30) mmol/L Anion Gap 12.5 (5-15) MEQ/L BUN 12 (7-17) mg/dL Creatinine 0.67 (0.52-1.04) mg/dL Estimated GFR > 60.0 ML/MIN Glucose 108 H (74-106) mg/dL Calcium 9.6 (8.4-10.2) mg/dL Total Bilirubin 0.60 (0.2-1.3) mg/dL AST 24 (14-36) U/L ALT 13 (0-35) U/L Alkaline Phosphatase 77 (38-126) U/L Troponin I (0.000-0.034) ng/mL Serum Total Protein 7.5 (6.3-8.2) g/dL Albumin 4.5 (3.5-5.0) g/dL Amylase 72 (30-110) U/L Lipase 55 (23-300) U/L Urine Color (YELLOW) Urine Appearance (CLEAR) Urine pH (5-6) Ur Specific Ruby (1.005-1.025) Urine Protein (Negative) Urine Ketones (NEGATIVE) Urine Blood (0-5) Markus/ul Urine Nitrite (NEGATIVE) Urine Bilirubin (NEGATIVE) Urine Urobilinogen (0-1) mg/dL Ur Leukocyte Esterase (NEGATIVE) Urine WBC (Auto) (0-5) /HPF Urine RBC (Auto) (0-2) /HPF U Epithel Cells (Auto) (FEW) /HPF Urine Bacteria (Auto) (NEGATIVE) /HPF Urine Mucus (Auto) (NEGATIVE) /HPF Urine Culture Reflexed (NO) Urine Glucose (NEGATIVE) mg/dL - Progress Progress: improved Progress Note: 10/26/21 22:50 1L NS bolus 50umg IV Fentanyl/4mg IV Zofran w mild improvement in pain 10/26/21 22:51 10mg IV Decadron 500mg IV Flagyl Pt started on Levaquin/Flagyl today per Dr. Yanes phone call Pt wishes to go home w outpt f/u 10/27/21 04:32 Pt's pain greatly improved before discharge. Counseled pt/family regarding: lab results, diagnosis, need for follow-up, rad results - Departure Departure Disposition: Home Clinical Impression: Colitis Condition: Stable Critical Care Time: No Referrals: MIGUEL BOCANEGRA MD [ACTIVE STAFF] - Follow up/PCP as directed Instructions: Colitis Additional Instructions: Follow up with Dr. Yanes in 1-2 days Continue Levaquin and prednisone and continue with Flagyl in the morning Return to ER for increasing pain or temperature greater than 100.5 Prescriptions: Metronidazole 500 mg [Flagyl 500 MG] 500 mg PO TID #21 tablet
[2021-10-26 19:19] LABS: Absolute Neutrophil Ct (ANC) 12.05 (1.4-6.9); BASOPHIL % 0.1 % (0.0-0.4); Basophil (Absolute #) 0.01 (0-0.4); Eosinophil % 0.1 % (0.00-5.0); Eosinophil (Absolute #) 0.01 (0-0.5); Hemoglobin 14.6 gm/dl (12.0-16.0); Lymphocytes % 3.9 % (24.0-44.0); Mean Cell Volume 98.3 fl (78-100); Mean Corpuscular Hemoglobin 31.9 pg (26-32); Mean Corpuscular Hgb Concent. 32.4 g/dl (32-36); Mean Platelet Volume 10.9 fl (7.5-11.0); Monocyte (Absolute #) 0.35 (0.0-1.3); Monocytes % 2.7 % (0.0-12.0); Neutrophil % 93.2 % (36.0-66.0); Platelet Count 208 K/mm3 (150-450); Red Blood Count 4.58 M/mm3 (4.1-5.4); Red Cell Distribution Width 12.6 % (11.5-14.0); White Blood Count 12.9 K/mm3 (4.0-10.5)
[2021-10-26 19:34] LABS: ALBUMIN 4.5 g/dL (3.5-5.0); ALKALINE PHOSPHATASE 77 U/L (38-126); AMYLASE 72 U/L (30-110); ANION GAP 12.5 MEQ/L (5-15); BLOOD UREA NITROGEN 12 mg/dL (7-17); CHLORIDE 95 mmol/L (98-107); Calcium 9.6 mg/dL (8.4-10.2); Carbon Dioxide 27 mmol/L (22-30); Creatinine 1 0.67 mg/dL (0.52-1.04); EST GLOMERULAR FILTRATION RATE > 60.0 ML/MIN; Glucose 108 mg/dL (74-106); LIPASE 55 U/L (23-300); Potassium 4.7 mmol/L (3.5-5.1); SGOT/AST 24 U/L (14-36); SGPT/ALT 13 U/L (0-35); SODIUM 130 mmol/L (137-145); Total Protein 7.5 g/dL (6.3-8.2)
[2021-10-26] MEDS ORDERED: SUBLIMAZE 100 MCG/2 ML IV ONE (19:41)
[2021-10-26] MEDS ORDERED: Sodium Chloride 0.9% 1000 ML 1,000 ML IV STA (19:42)
[2021-10-26] MEDS ORDERED: Zofran 4 MG/2 ML VIAL IV ONE (19:42)
[2021-10-26] MEDS ORDERED: Zofran 4 MG/2 ML VIAL ONE (19:55)
[2021-10-26] MEDS ORDERED: SUBLIMAZE 100 MCG/2 ML ONE (19:57)
[2021-10-26] MEDS ORDERED: Sodium Chloride 0.9% 1000 ML 1,000 ML ONE (19:57)
[2021-10-26 20:53] LABS: Appearance CLEAR (CLEAR); Bacteria RARE /HPF (NEGATIVE); Bilirubin NEGATIVE (NEGATIVE); Blood NEGATIVE Ery/ul (0-5); Epithelial Cells RARE /HPF (FEW); Glucose NEGATIVE (NEGATIVE); Ketones SMALL (NEGATIVE); Leukocyte Esterase NEGATIVE (NEGATIVE); Mucus SLIGHT /HPF (NEGATIVE); Nitrite NEGATIVE (NEGATIVE); Protein,Urine Dip NEGATIVE (Negative); RBC 0-2 /HPF (0-2); Specific Gravity 1.011 (1.005-1.025); Urobilinogen NEGATIVE mg/dL (0-1)
[2021-10-26] MEDS ORDERED: Hydromorphone 1 mg/ml Injection IV ONE (21:52)
[2021-10-26] MEDS ORDERED: DECADRON 10MG INJ. IV ONE (21:54)
[2021-10-26] MEDS ORDERED: FLAGYL 500 MG IVPB 500 MG/100 ML BAG IV STA (21:54)
[2021-10-26] MEDS ORDERED: Hydromorphone 1 mg/ml Injection ONE (22:03)
[2021-10-26] MEDS ORDERED: FLAGYL 500 MG IVPB 500 MG/100 ML BAG IV ONE (22:03)
[2021-10-26] MEDS ORDERED: DECADRON 10MG INJ. ONE (22:03)
[2021-10-26 23:41] VITALS: BP 86/57; PULSE 84
[2021-10-27 04:34] VITALS: O2SAT 100
[2021-10-27 05:50] LABS: Slide Review 1 YES
--- NOTE | 2021-10-27 09:03 | XRAY ---
Indication: Abdomen pain, vomiting, and bloody stools. History Crohn's disease. Multiple contiguous axial images obtained through the abdomen and pelvis using 80 cc Isovue 370 contrast. Comparison: August 07, 2021. Lung bases demonstrates minimal dependent atelectasis and left costophrenic angle calcified granuloma. No infiltrate or effusion. Heart not enlarged. New small hiatal hernia. Noncontrasted stomach and bowel loops appear nonobstructed with normal appendix. Transverse colon now demonstrates moderate circumferential wall thickening with minimal stranding favoring colitis. Tiny pelvic free fluid air. No walled off fluid collection or free air. Urinary bladder is now markedly distended concerning for all objection versus neurogenic bladder. Again tiny hepatic/splenic calcified granulomas and hysterectomy. Remaining liver, gallbladder, pancreas, spleen, adrenal glands, kidneys, ureters, and bladder are unremarkable. There remains mild scattered aortoiliac calcifications. No AAA or pathologic retroperitoneal lymphadenopathy. Osseous structures intact again with minimal degenerative changes throughout the lumbar spine. Impression: 1. New bowel wall thickening transverse colon favoring colitis. Tiny pelvic free fluid presumed reactive. 2. New markedly distended urinary bladder. Rule out outlet obstruction versus neurogenic bladder. 3. New small hiatal hernia. 4. Again incidental chronic bony findings and old granulomatous disease.
== END 2021-10-26 23:50 | disposition home or self-care (01) ==
LOC: ED 17:50
DX: K52.9 Noninfective gastroenteritis and colitis, unspecified (principal); R11.2 Nausea with vomiting, unspecified; K92.1 Melena; M54.50 Low back pain, unspecified; Z79.52 Long term (current) use of systemic steroids; Z79.2 Long term (current) use of antibiotics; K50.90 Crohn's disease, unspecified, without complications; E78.5 Hyperlipidemia, unspecified; Z72.0 Tobacco use
CPT/HCPCS: 36000; 36415; 74177; 80053; 81001; 82150; 83690; 84484; 85025; 85652; 96360; 96374; 96375; 99284; U0003; J1100; J1170; J2405; J3010

== ENCOUNTER 2023-06-24 06:06 | Day surgery (SDC) | payer MEDICARE ==
[2023-06-24 06:44] VITALS: RESP 16
[2023-06-24] MEDS ORDERED: Lactated Ringers 1,000 ML IV SCH (07:00)
[2023-06-24] MEDS ORDERED: DIPRIVAN 200 MG/20 ML IV ONE ×2 (07:27→07:49)
[2023-06-24] MEDS ORDERED: Xylocaine-Mpf 2% 5 Ml Vial ONE (07:27)
[2023-06-24] MEDS ORDERED: Versed 2 MG/2 ML Injection ONE (07:29)
[2023-06-24] MEDS ORDERED: Ephedrine Sulfate 50 MG/ML ONE (07:37)
[2023-06-24 08:21] VITALS: TEMP 97.2
[2023-06-24 08:40] VITALS: BP 102/70; PULSE 85; O2SAT 97
--- NOTE | 2023-06-24 10:18 | OP ---
SURGERY DATE/TIME: 06/24/2023 8720 PREOPERATIVE DIAGNOSES: 1) Screening exam. 2) History of Crohn's colitis. POSTOPERATIVE DIAGNOSIS: Evidence of inflammatory condition in the colon otherwise no significant mucosal pathology. PROCEDURE: Colonoscopy with cold forceps biopsy. SURGEON: Dr. Madrid. ANESTHESIA: Medications given by anesthesia department. HISTORY: The patient is a 62-year-old white female presenting now for colonoscopic evaluation for screening purposes. The patient apparently has a previous history of Crohn's colitis but she is on no medications. Apparently her said that she is afraid of the side effects and therefore refuses the medication. The patient is felt to need to have endoscopic evaluation. She was described the risks of the procedure including the risk of perforation, phlebitis, untoward reaction to medication, bleeding and missed lesions. The patient verbalized her understanding and desired to have the procedure performed. DESCRIPTION OF PROCEDURE: The patient was given the medications by the anesthesia department. She had continuous pulse oximetry, ECG monitoring and intermittent blood pressure monitoring during the examination. She was placed in the left lateral decubitus position. A digital rectal examination was performed and revealed normal anal sphincter tone and no masses. The flexible Olympus pediatric colonoscope was used to intubate the rectum. A view of the colon was developed sequentially to the cecum including a short distance into the terminal ileum. Upon insertion and withdrawal, including retroflex view in the rectum was noted an area of the colon at approximately the proximal sigmoid that had evidence of inflammation which was biopsied using cold biopsy technique to confirm the underlying diagnosis of colitis. Otherwise, no other mucosal lesions being encountered the scope was removed from the patient who tolerated the procedure well and was sent back to OP recovery in good condition. The prep was noted to be fair to good.
== END 2023-06-24 08:44 | disposition home or self-care (01) ==
LOC: SDC 06:06
PROVIDERS: ATTEND Family Medicine
DX: Z12.11 Encounter for screening for malignant neoplasm of colon (principal); Z87.19 Personal history of other diseases of the digestive system; K52.9 Noninfective gastroenteritis and colitis, unspecified; D12.6 Benign neoplasm of colon, unspecified
CPT/HCPCS: J2250; J2704

== ENCOUNTER 2023-09-10 18:44 | Emergency (ER) | payer MEDICARE ==
[2023-09-10] MEDS ORDERED: Sodium Chloride 0.9% 1000 ML 1,000 ML ONE (19:24)
[2023-09-10 19:27] VITALS: TEMP 97.5
[2023-09-10 19:47] LABS: Absolute Neutrophil Ct (ANC) 6.53 x10^3/uL (1.4-6.9); BASOPHIL % 0.7 % (0.0-0.4); Basophil (Absolute #) 0.08 x10^3/uL (0-0.4); Eosinophil % 2.7 % (0.00-5.0); Eosinophil (Absolute #) 0.33 x10^3/uL (0-0.5); Hematocrit 46.6 % (35-47); Hemoglobin 15.4 g/dL (12.0-16.0); IMMATURE GRAN # 0.05 x10^3u/L (0.00-0.03); IMMATURE GRAN % 0.4 % (0.00-0.4); Lymphocyte (Absolute #) 4.24 x10^3/uL (1.0-4.6); Lymphocytes % 35.2 % (24.0-44.0); Mean Cell Volume 100.2 fL (78-100); Mean Corpuscular Hemoglobin 33.1 pg (26-32); Mean Platelet Volume 9.9 fL (7.5-11.0); Monocytes % 6.7 % (0.0-12.0); Neutrophil % 54.3 % (36.0-66.0); Platelet Count 278 x10^3/uL (150-450); Red Blood Count 4.65 x10^6/uL (4.1-5.4); Red Cell Distribution Width 12.3 % (11.5-14.0)
[2023-09-10 19:57] LABS: ANION GAP 19.1 MEQ/L (5-15); Calcium 10.2 mg/dL (8.4-10.2); Creatinine 1 0.8 mg/dL (0.52-1.04); EST GLOMERULAR FILTRATION RATE 83.8 ML/MIN; Potassium 4.6 mmol/L (3.5-5.1)
[2023-09-10 20:12] LABS: D-DIMER QUANTITATIVE 0.35 mg/L (0.0-0.50); INR 0.88 (0.8-3.0); PROTIME 9.7 SECONDS (9.4-12.5); PTT 28.5 SECONDS (25.1-36.5)
--- NOTE | 2023-09-10 21:33 | ERPHSYRPT ---
- History of Present Illness Time Seen by Provider: 09/10/23 19:20 Source: patient Exam Limitations: no limitations Patient Subjective Stated Complaint: pt states that she was cooking super and felt her heart start to race. pt states that she felt like she was going pass o ut. Triage Nursing Assessment: pt ambulated into the er; pt is axo x4; c/o tachycardic; on arrival pt heart was 198 bpm; clear apical heart tone; clear heart tone; strong laine radial pulses; pedal pulses present; no edema present; c/o lightheadedness; c/o dizziness; pt denies LOC; no respiratory distress; pt denies SOB; dry hacking cough present; skin PDW; svt Physician History: 62 years old female, PMHx of COPD, neuropathy, presenting to the emergency room with a chief complaint of palpitations, bilateral chest tightness and feeling that she is going to pass out. The patient states that she was cooking supper at around 5 PM when she felt the above symptoms. She felt that her neck was about to burst. She had this episode almost a year ago that resolved spontaneously after a good sleep. The patient's heart rate is in the 190s. No history of coronary artery disease heart disease. She follows up with a public relations director on a regular basis. She is cutting down on her smoking, currently 4 cigarettes a day. Aspirin Treatment Today: no aspirin today Allergies/Adverse Reactions: codeine [Codeine] Allergy (Intermediate, Verified 09/10/23 19:12) Hives acetaminophen [From Tylenol] Adverse Reaction (Mild, Verified 09/10/23 19:12) upset stomach Home Medications: Aspirin [Aspirin EC] 81 mg PO DAILY 10/26/21 [History] Atorvastatin Calcium [Lipitor 40Mg] 40 mg PO DAILY 10/26/21 [History] diazePAM [Diazepam] 10 mg PO HS 10/26/21 [History] Albuterol Sulfate [Proair Respiclick] 90 mcg IH QID 06/17/23 [History] B6/Folic/B12/Coffee/Phosphatid [Neuriva Plus Brain Perform Cap] 1 each PO DAILY 06/17/23 [History] Tramadol HCl 50 mg [Ultram 50 mg] 50 mg PO DAILY PRN PRN 06/17/23 [History] Hx Tetanus, Diphtheria Vaccination/Date Given: No (unknown) Hx Influenza Vaccination/Date Given: Yes Hx Pneumococcal Vaccination/Date Given: Yes Travel Risk - International Travel Have you traveled outside of the country in past 3 weeks: No - Coronavirus Screening Are you exhibiting any of the following symptoms?: No Close contact with a COVID-19 positive Pt in past 14-21 Days: No - Vaccine Status Have you recieved a Covid-19 vaccination: Yes [employer]: Moderna - Vaccination Dates Date of 2cond Vaccination (if applicable): 01/2021 - Review of Systems Constitutional: No Fever, No Chills Eyes: No Symptoms Respiratory: No Cough, No Dyspnea Cardiac: Chest Pain, Palpitations, No Edema, No Syncope Abdominal/Gastrointestinal: No Abdominal Pain, No Nausea, No Vomiting, No Diarrhea Genitourinary Symptoms: No Dysuria Musculoskeletal: No Back Pain, No Neck Pain Skin: No Rash Neurological: Dizziness, No Focal Weakness, No Sensory Changes Psychological: No Symptoms Endocrine: No Symptoms All Other Systems: Reviewed and Negative - Past Medical History Pertinent Past Medical History: Yes Neurological History: TIA ENT History: No Pertinent History Cardiac History: Arrhythmia, High Cholesterol, Other Respiratory History: Bronchitis, COPD, Pneumonia, Sleep Apnea Endocrine Medical History: No Pertinent History Musculoskeletal History: Osteoporosis GI Medical History: Crohns Disease, Ulcer History: Dialysis Psycho-Social History: No Pertinent History Female Reproductive Disorders: Endometriosis Other Medical History: SVT,HEART RACES AT TIMES, HEART MURMUR,MITRAL VALVE PROLAPSE,BLOOD CLOT IN CAROTID, KIDNEY FAILURE REQUIRING SHORT TERM DIALYSIS,CHRONES DISEASE, - Past Surgical History Past Surgical History: Yes Neuro Surgical History: No Pertinent History Cardiac: Cardiac Catheterization, Other Respiratory: No Pertinent History Gastrointestinal: No Pertinent History Genitourinary: No Pertinent History Musculoskeletal: Orthopedic Surgery Female Surgical History: Hysterectomy Other Surgical History: Surgery on right hand X 2, LEFT CAROTID SURGERY-90% BLOCKED,PT HAD TIA - Social History Smoking Status: Current every day smoker How long have you smoked: 40 YEARS Exposure to second hand smoke: Yes Drug Use: none Patient Lives Alone: No Significant Family History: no pertinent family hx - Nursing Vital Signs Nursing Vital Signs: Initial Vital Signs Temperature 97.5 F 09/10/23 19:13 Pulse Rate 195 H 09/10/23 19:13 Respiratory Rate 22 09/10/23 19:13 Blood Pressure 102/71 09/10/23 19:13 O2 Sat by Pulse Oximetry 94 L 11/04/23 19:13 Pain Scale Pain Intensity 4 - Physical Exam General Appearance: no apparent distress, alert Eye Exam: PERRL/EOMI, eyes nml inspection Ears, Nose, Throat Exam: normal ENT inspection, moist mucous membranes Neck Exam: normal inspection, non-tender, supple Respiratory Exam: normal breath sounds, lungs clear, No respiratory distress Cardiovascular Exam: regular rate/rhythm, normal heart sounds, tachycardia, No edema Gastrointestinal/Abdomen Exam: soft, No tenderness, No mass Back Exam: normal inspection, No CVA tenderness, No vertebral tenderness Extremity Exam: normal inspection, normal range of motion Neurologic Exam: alert, oriented x 3, cooperative, normal mood/affect, nml cerebellar function, sensation nml, No motor deficits Skin Exam: normal color, warm, dry Lymphatic Exam: No adenopathy SpO2: 95 - Course Nursing assessment & vital signs reviewed: Yes EKG Interpreted by Me: RATE (196), SVT, Non-specific ST Changes Ordered Tests: Active Orders 24 hr Category Date Time Status CHEST 1 VIEW (PORTABLE) Stat Exams 09/10/23 19:41 Taken FOOT (MINIMUM 3 VIEWS) Stat Exams 09/10/23 21:43 Taken BMP Stat Lab 09/10/23 19:25 Completed CBC W DIFF Stat Lab 09/10/23 19:25 Completed D-DIMER QUANTITATIVE Stat Lab 09/10/23 19:25 Completed MAGNESIUM Stat Lab 09/10/23 19:25 Completed PROTIME WITH INR Stat Lab 09/10/23 19:25 Completed PTT Stat Lab 09/10/23 19:25 Completed TROPONIN Q4H Lab 09/10/23 19:25 Completed TROPONIN Q4H Lab 09/10/23 21:33 Completed TSH [TSH, 3RD Generation] Stat Lab 09/10/23 19:25 Completed Medication Summary Discontinued Medications Generic Name Dose Route Start Last Admin Trade Name Freq PRN Reason Stop Dose Admin Sodium Chloride Confirm 09/10/23 19:24 Sodium Chloride 0.9% 1000 Ml Administered 09/10/23 19:25 Dose 1,000 mls @ ud .ROUTE .ST-MED ONE Lab/Rad Data: Laboratory Result Diagrams 09/10/23 19:25 09/10/23 19:25 Laboratory Results 09/10/23 09/10/23 09/10/23 Range/Units 21:33 19:25 19:25 WBC (4.0-10.5) x10^3/uL RBC (4.1-5.4) x10^6/uL Hgb (12.0-16.0) g/dL Hct (35-47) % MCV (78-100) fL MCH (26-32) pg MCHC (32-36) g/dL RDW (11.5-14.0) % Plt Count (150-450) x10^3/uL MPV (7.5-11.0) fL Gran % (36.0-66.0) % Immature Gran % (Auto) (0.00-0.4) % Nucleat RBC Rel Count (0.00-0.1) % Eos # (Auto) (0-0.5) x10^3/uL Immature Gran # (Auto) (0.00-0.03) x10^3u/L Absolute Lymphs (auto) (1.0-4.6) x10^3/uL Absolute Monos (auto) (0.0-1.3) x10^3/uL Absolute Nucleated RBC (0.00-0.01) x10^3u/L Lymphocytes % (24.0-44.0) % Monocytes % (0.0-12.0) % Eosinophils % (0.00-5.0) % Basophils % (0.0-0.4) % Absolute Granulocytes (1.4-6.9) x10^3/uL Basophils # (0-0.4) x10^3/uL PT (9.4-12.5) SECONDS INR (0.8-3.0) APTT (25.1-36.5) SECONDS D-Dimer (0.0-0.50) mg/L Sodium (137-145) mmol/L Potassium (3.5-5.1) mmol/L Chloride (98-107) mmol/L Carbon Dioxide (22-30) mmol/L Anion Gap (5-15) MEQ/L BUN (7-17) mg/dL Creatinine (0.52-1.04) mg/dL Estimated GFR ML/MIN Glucose (74-106) mg/dL Calcium (8.4-10.2) mg/dL Magnesium (1.6-2.3) mg/dL Troponin I < 0.012 < 0.012 (0.000-0.034) ng/mL TSH 3rd Generation 3.280 (0.47-4.68) mIU/L 09/10/23 09/10/23 09/10/23 Range/Units 19:25 19:25 19:25 WBC 12.0 H (4.0-10.5) x10^3/uL RBC 4.65 (4.1-5.4) x10^6/uL Hgb 15.4 (12.0-16.0) g/dL Hct 46.6 (35-47) % MCV 100.2 H (78-100) fL MCH 33.1 H (26-32) pg MCHC 33.0 (32-36) g/dL RDW 12.3 (11.5-14.0) % Plt Count 278 (150-450) x10^3/uL MPV 9.9 (7.5-11.0) fL Gran % 54.3 (36.0-66.0) % Immature Gran % (Auto) 0.4 (0.00-0.4) % Nucleat RBC Rel Count 0.0 (0.00-0.1) % Eos # (Auto) 0.33 (0-0.5) x10^3/uL Immature Gran # (Auto) 0.05 H (0.00-0.03) x10^3u/L Absolute Lymphs (auto) 4.24 (1.0-4.6) x10^3/uL Absolute Monos (auto) 0.80 (0.0-1.3) x10^3/uL Absolute Nucleated RBC 0.00 (0.00-0.01) x10^3u/L Lymphocytes % 35.2 (24.0-44.0) % Monocytes % 6.7 (0.0-12.0) % Eosinophils % 2.7 (0.00-5.0) % Basophils % 0.7 (0.0-0.4) % Absolute Granulocytes 6.53 (1.4-6.9) x10^3/uL Basophils # 0.08 (0-0.4) x10^3/uL PT 9.7 (9.4-12.5) SECONDS INR 0.88 (0.8-3.0) APTT 28.5 (25.1-36.5) SECONDS D-Dimer 0.35 (0.0-0.50) mg/L Sodium 134 L (137-145) mmol/L Potassium 4.6 (3.5-5.1) mmol/L Chloride 98 (98-107) mmol/L Carbon Dioxide 22 (22-30) mmol/L Anion Gap 19.1 H (5-15) MEQ/L BUN 13 (7-17) mg/dL Creatinine 0.80 (0.52-1.04) mg/dL Estimated GFR 83.8 ML/MIN Glucose 144 H (74-106) mg/dL Calcium 10.2 (8.4-10.2) mg/dL Magnesium 2.0 (1.6-2.3) mg/dL Troponin I (0.000-0.034) ng/mL TSH 3rd Generation (0.47-4.68) mIU/L - Progress Progress: improved, re-examined Air Movement: good Progress Note: 09/10/231919 62 years old female, past medical history of COPD, presenting to the emergency room with a chief complaint of palpitations, bilateral chest tightness and fe eling that she is going to pass out. The patient states that she was cooking supper at around 5 PM when she felt the above symptoms. She felt that her neck was about to burst. She had this episode almost a year ago that resolved spontaneously after a good sleep. The patient's heart rate is in the 190s. No history of ischaemic heart disease. She follows up with a public relations director on a regular basis. Emergency room course and medical decision making. SVT Ischemic heart disease Hypothyroidism Electrolyte abnormality On arrival the patient had an EKG done which revealed SVT at a rate of 193 bpm. She had an IV access and blood drawn for CBC, CMP, D-dimer, troponin, portable chest x-ray. Vagal massage maneuver , was done to the patient without any success She was told to blow through her pinched nose, Valsalva maneuver, and all of a sudden her heart rate slowed down in the 130s 120s and 110. Repeated EKG is sinus tachycardia at a rate of 118 bpm with right atrial enlargement minimal ST depression in the lateral leads. 09/10/23 21:30 The patient is feeling much better her heart rate is in the 80s sinus rhythm and regular. At present she is complaining of left foot pain, she believes that she must have had twisted her left foot when she got dizzy when she had the SVT. We will order x-ray of the left foot, awaiting second troponin. 22:30 PM Both troponin less than 0.012. Negative D-dimer 0.34. Normal potassium and magnesium. Chest x-ray COPD changes. X-ray of her foot revealed no acute findings. The patient will be discharged home. She needs to rest, smoking cessation counseling discussed with the patient. Follow-up with your family physician 2 to 3 days. Follow-up with your public relations director call for an appointment. 09/11/23 06:56 Blood Culture(s) Obtained: No Antibiotics given: No Counseled pt/family regarding: lab results, diagnosis, need for follow-up, rad results, smoking cessation Medical Desision Making - Discussion of managment Reviewed:: Test results Agreed on:: Treatment plan, need for follow-up - Departure Departure Disposition: Home Clinical Impression: Paroxysmal SVT (supraventricular tachycardia), Contusion of foot, left Condition: Stable Critical Care Time: Yes Critical Care Time(excluding separately billable procedures): Critical 30-74 m ins Referrals: RAUL CAGE MD [Primary Care Provider] - Follow up/PCP as directed Instructions: Sinus Tachycardia (DC) Additional Instructions: Follow-up with your public relations director call for an appointment. Follow-up as needed for any worsening symptoms like chest pain, shortness of breath or palpitation.
[2023-09-10 22:17] VITALS: PULSE 86
[2023-09-10 22:35] VITALS: O2SAT 95
[2023-09-10 22:46] VITALS: BP 121/83; RESP 21
--- NOTE | 2023-09-11 07:56 | XRAY ---
Indication: Chest pain. Comparison: November 28, 2018 Portable chest unchanged again hyperinflated and clear with incidental left upper lobe calcified granulomas. Heart not enlarged. Bony thorax intact again with osteopenia. No new/acute findings.
--- NOTE | 2023-09-11 07:56 | XRAY ---
Indication: Pain following fall. Comparison: None 3 nonweightbearing views left foot demonstrates osteopenia. No other bony, articular, or soft tissue abnormalities.
== END 2023-09-10 22:57 | disposition home or self-care (01) ==
LOC: ED 18:44
DX: I47.19 Other supraventricular tachycardia (principal); S90.32XA Contusion of left foot, initial encounter; R07.9 Chest pain, unspecified; E78.5 Hyperlipidemia, unspecified; Z79.891 Long term (current) use of opiate analgesic; Z79.899 Other long term (current) drug therapy; Z72.0 Tobacco use
CPT/HCPCS: 36000; 36415; 71045; 73630; 80048; 83735; 84443; 84484; 85025; 85379; 85610; 85730; 99284; 99291